=== PATIENT | male | born 1950 | race Caucasian/White ===

== ENCOUNTER 2018-03-01 15:58 | Emergency (ER) | payer OTHER ==
[~2018-03-01] VITALS: Ht 175.3 cm; Wt 83.9 kg
[~2018-03-01 15:58] MED LIST: AMLODIPINE BESY10 MG PO; LISINOPRIL20 MG PO; LOPRESSOR100 MG PO; SIMVASTATIN40 MG PO
[2018-03-01 16:24] LABS: URINE BILIRUBIN NEGATIVE (Negative); URINE BLOOD NEGATIVE (Negative); URINE CLARITY CLEAR; URINE COLOR YELLOW; URINE GLUCOSE-RANDOM NEGATIVE (Negative); URINE KETONES NEGATIVE (Negative); URINE LEUKOCYTES-REFLEX NEGATIVE (Negative); URINE NITRITE-REFLEX NEGATIVE (Negative); URINE PROTEIN 1+ (Negative); URINE SPECIFIC GRAVITY <= 1.005 (1.005-1.030); URINE UROBILINOGEN 0.2 E.U./dl (0.2-1.0)
[2018-03-01 16:40] LABS: ABSOLUTE LYMPHOCYTES 0.5 thou/uL (0.8-5.3); ABSOLUTE MONOCYTES 0.3 thou/uL (0.0-1.2); ABSOLUTE NEUTROPHILS 2.9 thou/uL (1.6-8.1); BASOPHILS 0.8 %; EOSINOPHILS 0.7 %; HEMATOCRIT 50.3 % (42.0-52.0); HEMOGLOBIN 17.6 gm/dL (14.0-18.0); LYMPHOCYTES 14.1 %; MCH 35.8 pg (26.0-34.0); MCHC 34.9 g/dL (28.0-37.0); MCV 102.6 fL (80.0-100.0); MONOCYTES 8.3 %; MPV 7.8 fl. (7.2-11.1); NUCLEATED RBCS 0 /100WBC; PLATELET COUNT* 124 thou/uL (150-400); POLYS 76.1 %; RDW-CV 13.3 % (10.5-14.5); WBC 3.8 thou/uL (4.0-11.0)
[2018-03-01 16:47] LABS: ANION GAP 14 mmol/L (7-16); BUN 4 mg/dL (7-18); CALCIUM 8.2 mg/dL (8.5-10.1); CHLORIDE 90 mmol/L (98-107); CO2 23 mmol/L (21-32); CREATININE 0.7 mg/dL (0.6-1.3); GLUCOSE 115 mg/dL (70-99); POTASSIUM 3.5 mmol/L (3.5-5.1); SODIUM 127 mmol/L (136-145)
[2018-03-01 16:48] LABS: APTT 31.4 Seconds (25.0-31.3); INR 1.1; PROTIME 10.8 Seconds (9.20-11.50)
[2018-03-01 16:52] LABS: ACETAMINOPHEN < 2 ug/mL (10-30); ALCOHOL 223 mg/dL (<10); SALICYLATE 3.2 mg/dL (2.8-20.0)
[2018-03-01 16:54] LABS: ALKALINE PHOSPHATASE 99 U/L (46-116); SGOT 37 U/L (15-37); SGPT 33 U/L (30-65); TOTAL BILIRUBIN 0.7 mg/dL (<0.1-1.0); TROPONIN-I LEVEL <0.06 ng/mL (<0.06)
[2018-03-01 18:00] VITALS: BP 135/79
--- NOTE | 2018-03-02 12:33 | EKG ---
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 PALACIOS : 1950 Requested By: Coy Ceja Order Number: [id number] MD: El Hi Measurements Intervals [place] Rate: 65 P: 43 MN: 248 QRS: 36 QRSD: 103 T: 144 QT: 427 QTc: 444 Interpretive Statements Sinus rhythm Atrial premature complexes Prolonged MN interval Probable left atrial enlargement Nonspecific T abnormalities, lateral leads Compared to ECG 03/07/2008 07:56:50 Atrial premature complex(es) now present First degree AV block now present Myocardial infarct finding no longer present Possible ischemia no longer present T-wave abnormality still present Electronically Signed On 03-02-2018 12:33:28 SPOT REMOVER by El Hi [email or web address] <ELECTRONICALLY SIGNED> By: El Hi MD, FACC 03/02/18 1233 1624 1624 El [place] MD, FACC /EPI
== END 2018-03-01 18:00 | disposition home or self-care (01) ==
LOC: M.ERS 15:58
PROVIDERS: Family Medicine
DX: S70.02XA Contusion of left hip, initial encounter (principal); S00.31XA Abrasion of nose, initial encounter; F10.129 Alcohol abuse with intoxication, unspecified; Y90.7 Blood alcohol level of 200-239 mg/100 ml; Z95.1 Presence of aortocoronary bypass graft; W18.39XA Other fall on same level, initial encounter; Y93.89 Activity, other specified; Y92.89 Other specified places as the place of occurrence of the external cause; Y99.8 Other external cause status

== ENCOUNTER → 2019-02-08 | Outpatient (CLI) | payer OTHER ==
[2019-02-08 08:22] LABS: CREATININE 0.8 mg/dL (0.6-1.3)
== END ==
LOC: M.LAB 02-04 07:30 → M.CT 02-04 08:00 → M.LAB 07:00
PROVIDERS: Internal Medicine Gastroenterology
DX: K22.9 Disease of esophagus, unspecified (principal); J98.4 Other disorders of lung; I25.10 Atherosclerotic heart disease of native coronary artery without angina pectoris